=== PATIENT | female | born 1975 | race Caucasian/White ===

== ENCOUNTER 2018-12-06 01:05 | Emergency (ER) | payer OTHER ==
[~2018-12-06] VITALS: Ht 162.6 cm; Wt 70.3 kg
[2018-12-06 01:12] VITALS: BP 181/104
[2018-12-06] MEDS ORDERED: KETOROLAC 30 MG/ML VIAL IM ONE (01:25)
[2018-12-06] MEDS ORDERED: cloNIDine 0.1 MG TAB PO ONE ×2 (01:25→02:05)
--- NOTE | 2018-12-06 01:30 | NUR ---
43 YO F BIB SELF AND BOYFRIEND PRESENTS TO ED C/O 02/01 [facility] TILLMAN X 2 DAYS. PT ALSO PRESENTS WITH HTN: 181/104. PT STATES SHE HAS BEEN COMPLIANT WITH HER BP MEDS. 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 DENIES N/V, CP, SOB, DIZZINESS. DENIES OTHER MEDICAL HX. PT CALM, COOPERATIVE. ANSWERS QUESTIONS APPROPRIATELY. SKIN WARM, PINK, DRY. BREATHING EVEN, UNLABORED.
--- NOTE | 2018-12-06 02:00 | NUR ---
PT STATES HER TILLMAN HAS RESOLVED. REPORTS 0/10 PAIN. BP STILL ELEVATED: 191/97. DR. ANGEL NOTIFIED. NEW ORDERS RECEIVED.
[2018-12-06] MEDS ORDERED: ALPRAZolam 0.5 MG TAB PO ONE (02:05)
[2018-12-06 02:58] VITALS: BP 158/88
--- NOTE | 2018-12-06 02:58 | NUR ---
Patient discharged with v/s stable. Written and verbal after care instructions given and explained. Patient alert, oriented and verbalized understanding of instructions. Ambulatory with steady gait. All questions addressed prior to discharge. ID band removed. Patient advised to follow up with PMD. Rx of Fioricet given. Patient educated on indication of medication including possible reaction and side effects. Opportunity to ask questions provided and answered.
== END 2018-12-06 02:58 | disposition home or self-care (01) ==
LOC: MED 01:05
DX: G43.909 Migraine, unspecified, not intractable, without status migrainosus (principal); I10 Essential (primary) hypertension; F41.9 Anxiety disorder, unspecified; F17.210 Nicotine dependence, cigarettes, uncomplicated
CPT/HCPCS: 96372; 99284; J1885